=== PATIENT | male | born 1995 | race Hispanic/Latino ===

== ENCOUNTER 2020-01-07 14:16 | Outpatient (CLI) | payer BC ==
[~2020-01-07 14:16] MED LIST: Iopamidol-370 76% 500 ML 1 ML ONE
--- NOTE | 2020-01-07 15:52 | CT ---
CT ABDOMEN AND PELVIS WITH AND WITHOUT IV CONTRAST: HISTORY: A 24-year-old male with microscopic hematuria. FINDINGS: The lung bases are clear. The liver, spleen, pancreas, and adrenal glands are normal. No calcified gallstones are seen. No calculi are seen in the kidneys, ureters, or the urinary bladder. No hydroureteral nephrosis is n oted on either side. Postcontrast images demonstrate normal enhancement of the renal parenchyma with out evidence of mass. There is normal contrast excretion into the ureters and urinary bladder. Pros powers gland is of normal size. No free air, free fluid, or lymphadenopathy is seen in the abdomen or pelvis. The small bowel loops are not abnormally dilated. A normal-appearing appendix is present. Osseous structures are unremark able. IMPRESSION: No CT evidence of urinary tract calculi/obstruction or renal mass. POS: OFF
== END 2020-01-07 14:17 | disposition home or self-care (01) ==
LOC: BICCT 14:16
PROVIDERS: ATTEND Urology
DX: R31.29 Other microscopic hematuria (principal)
CPT/HCPCS: 74178; Q9967